=== PATIENT | female | born 1990 | race Caucasian/White ===

== ENCOUNTER 2017-02-12 18:53 | Emergency (ER) | payer SELFPAY ==
--- NOTE | 2017-02-12 19:10 | Emergency Department Record ---
History of Present Illness - General Chief Complaint: Ankle/Foot Injury Stated Complaint: INJURY TO RT LEG/WC Time Seen by Provider: 02/12/17 19:03 Source: Patient, Family Mode of Arrival: Ambulatory Limitations: No limitations - History of Present Illness Initial Comments: 26 yo female was walking at work and developed sharp pain in the right ankle and proximal foot on top in front. No posterior pain or Achilles pain. No history of prior orthopedic, joint, arthritic, or rheumatologic disease. No history of calf or thigh pain. MD Complaint: Ankle injury, Foot injury Injury: Ankle: Right, Foot: Right Type of Injury: Unknown Place: Work Severity: Severe Improves With: Immobilization Worsens With: Movement, Palpation, Weight bearing Context: Walking Associated Symptoms: Able to partially bear weight Treatments Prior to Arrival: Other (crutches) - Related Data Allergies Allergy/AdvReac Type Severity Reaction Status Date / Time No Known Drug Allergies Allergy Verified 02/12/17 19:07 Review of Systems Constitutional: Denies: Chills, Fever, Malaise, Weakness Eyes: Denies: Eye discharge ENT: Denies: Congestion, Throat pain Respiratory: Denies: Cough Cardiovascular: Denies: Chest pain, Syncope Endocrine: Denies: Fatigue Gastrointestinal: Denies: Abdominal pain, Diarrhea, Nausea, Vomiting Genitourinary: Denies: Dysuria Musculoskeletal: Reports: Arthralgia. Denies: Back pain, Joint swelling, Myalgia, Neck pain Skin: Denies: Bruising, Change in color, Pruritus, Rash Neurological: Denies: Headache Psychiatric: Denies: Anxiety Hematological/Lymphatic: Denies: Easy bleeding, Easy bruising Physical Exam - General General Appearance: Alert, Oriented x3, Cooperative, No acute distress Limitations: No limitations - Head Head exam: Atraumatic - Eye Eye exam: Normal appearance - ENT ENT exam: Normal exam Ear exam: Normal external inspection Nasal Exam: Normal inspection Mouth exam: Normal external inspection - Neck Neck exam: Normal inspection - Cardiovascular Cardiovascular Exam: Regular rate, Normal rhythm, Normal heart sounds Peripheral Pulses: 2+: Dorsalis Pedis (R) - Rectal Rectal exam: Deferred - exam: Deferred - Extremities Extremities exam: Normal inspection, Full ROM, Normal capillary refill, Tenderness. negative: Calf tenderness, Pedal edema Image of Feet: 2 - mid ankle tenderness, no medial or lateral malleolar tenderness, no warmth , no swelling, non tender Achilless tendon 3 - injury is on the right - Back Back exam: Reports: Full ROM - Neurological Neurological exam: Alert, Normal gait, Oriented X3, Reflexes normal - Psychiatric Psychiatric exam: Normal affect, Normal mood. negative: Agitated, Anxious - Skin Skin exam: Dry, Intact, Normal color, Warm. negative: Cyanosis, Diaphoretic, Erythema, Mottled Course - Reevaluation(s) Reevaluation #1: XR ordered Motrin provided 02/12/17 19:08 02/12/17 19:27 Reevaluation #2: XR's were read as negative 02/12/17 19:42 Reevaluation #3: The plan is for NWB until pain free We discussed home care and reasons to return We discussed follow up in the next week if not improved 02/12/17 20:30 Disposition Disposition: Discharge Clinical Impression: Right ankle sprain Qualifiers: Encounter type: initial encounter Involved ligament of ankle: unspecified ligament Qualified Code(s): S93.401A - Sprain of unspecified ligament of right ankle, initial encounter Sprain of foot, right Qualifiers: Encounter type: initial encounter Qualified Code(s): S93.601A - Unspecified sprain of right foot, initial encounter Disposition: Home, Self-Care Condition: (1) Good Instructions: Ankle Sprain (ED), Ankle Fracture (ED) Additional Instructions: No weight bearing until pain free Follow up with your doctor in the next week if any pain continues Elevate and Ice every 3-4 hour to minimize swelling Use the crutches and supportive boot for support and comfort until pain is gone Forms: Patient Portal Access Time of Disposition: 19:42
[2017-02-12] MEDS ORDERED: IBUPROFEN 600 MG TABLET PO ONE (19:30)
== END 2017-02-12 19:59 | disposition home or self-care (01) ==
LOC: ER 18:53
DX: S93.401A Sprain of unspecified ligament of right ankle, initial encounter (principal); S93.601A Unspecified sprain of right foot, initial encounter; X58.XXXA Exposure to other specified factors, initial encounter; Y93.01 Activity, walking, marching and hiking; Y92.63 Factory as the place of occurrence of the external cause; Y99.0 Civilian activity done for income or pay
CPT/HCPCS: 99283